=== PATIENT | male | born 1950 | race African-American/Black ===

== ENCOUNTER 2019-05-19 12:00 | Emergency (ER) | payer MEDICARE, MEDICAID ==
[~2019-05-19] VITALS: Ht 198.1 cm; Wt 108.9 kg
--- NOTE | 2019-05-19 12:10 | NUR ---
ED Nurse Note: PT. BROUGHT IN BY RA White FROM [facility]. PT. FELT DIZZY AND ALMOST HAD A SYNCOPAL EPISODE. DENIES ANY TRAUMA. PT. DENIES ANY PAIN. PER EMS, PT HAD ABD PAIN BUT PT. DENIES HAVING PAIN AT THIS TIME. PT. IS AAOX4. AMBULATORY
--- NOTE | 2019-05-19 12:15 | NUR ---
ED Nurse Note: attempted to call gustavo @ , did not answer. left voicemail
[2019-05-19 12:34] LABS: HEMATOCRIT 45.4 % (42.0-52.0); MEAN CORPUSCULAR VOLUME 85 FL (80-99); PLATELET COUNT 197 K/UL (150-450); RED BLOOD COUNT 5.33 M/UL (4.70-6.10); RED CELL DISTRIBUTION WIDTH 12.1 % (11.6-14.8)
[2019-05-19 12:48] LABS: ANION GAP 9 mmol/L (5-15); BLOOD UREA NITROGEN 12 mg/dL (7-18); CALCIUM 8.9 MG/DL (8.5-10.1); CARBON DIOXIDE 24 MMOL/L (21-32); CHLORIDE 104 MMOL/L (98-107); CREATININE 1.6 MG/DL (0.55-1.30); POTASSIUM 3.7 MMOL/L (3.5-5.1); SODIUM 137 MMOL/L (136-145)
[2019-05-19 12:59] LABS: ALANINE AMINOTRANSFERASE 20 U/L (12-78); ALBUMIN 3.7 G/DL (3.4-5.0); ALKALINE PHOSPHATASE 101 U/L (46-116); ASPARTATE AMINO TRANSFERASE 17 U/L (15-37); BILIRUBIN,TOTAL 0.4 MG/DL (0.2-1.0)
[2019-05-19 13:06] VITALS: BP 131/78
--- NOTE | 2019-05-19 13:15 | NUR ---
ED Nurse Note: Patient resting in bed, states he feels much better after the infusion of 1L NS. VSS, gave patient a sandwich and juice per Dr. Boyce. No complaints of dizziness or lightheadedness.
[2019-05-19 13:55] VITALS: BP 128/82
--- NOTE | 2019-05-19 13:55 | NUR ---
ER DISCHARGE NOTE: Patient cleared for DC per Dr. Boyce, pt AxO x 4, VSS. Patient verbalized understanding of DC instructions. ID band removed. Patient able to ambulate with steady gait, took all belongings.
--- NOTE | 2019-05-19 14:01 | Emergency Room Report ---
History of Present Illness General Chief Complaint: Syncope Source: Patient, EMS Present Illness HPI 68-year-old male presents ED for evaluation. Brought in by EMS for syncopal episode. States that while he was standing he felt dizzy and nearly passed out. States he was caught by his friends and assisted to the ground. States that he feels somewhat weak but feels better upon arrival. States that he did not eat this morning and believes that is why he nearly passed out. Denies any chest pain or shortness of breath. Denies any headache blurry vision. No other aggravating relieving factors. Denies any other associated symptoms Allergies: Coded Allergies: No Known Allergies (Unverified , 05/19/19) Patient History Past Medical History: DM Past Surgical History: none Pertinent Family History: none Social History: Denies: smoking, alcohol use, drug use Immunizations: UTD Reviewed Nursing Documentation: PMH: Agreed; PSxH: Agreed Nursing Documentation-PMH Past Medical History: No History, Except For Hx Diabetes: Yes Review of Systems All Other Systems: negative except mentioned in HPI Physical Exam Vital Signs Date Time Temp Pulse Resp B/P (MAP) Pulse Ox O2 Delivery O2 Flow Rate FiO2 05/19/19 11:53 97.3 94 17 105/69 (81) 98 Room Air Sp02 EP Interpretation: reviewed, normal General Appearance: no apparent distress, alert, GCS 15, non-toxic Head: normocephalic, atraumatic Eyes: bilateral eye normal inspection, bilateral eye PERRL ENT: hearing grossly normal, normal pharynx, no angioedema, normal voice Neck: full range of motion, supple/symm/no masses Respiratory: chest non-tender, lungs clear, normal breath sounds, speaking full sentences Cardiovascular #1: regular rate, rhythm, no edema Cardiovascular #2: 2+ carotid (R), 2+ carotid (L), 2+ radial (R), 2+ radial (L) , 2+ dorsalis pedis (R), 2+ dorsalis pedis (L) Gastrointestinal: normal bowel sounds, non tender, soft, non-distended, no guarding, no rebound Rectal: deferred Genitourinary: normal inspection, no CVA tenderness Musculoskeletal: back normal, normal range of motion, gait/station normal, non- tender Neurologic: alert, motor strength/tone normal, oriented x3, sensory intact, responsive, speech normal Psychiatric: judgement/insight normal, memory normal, mood/affect normal, no suicidal/homicidal ideation Reflexes: 3+ bicep (R), 3+ bicep (L), 3+ tricep (R), 3+ tricep (L), 3+ knee (R) , 3+ knee (L) Lymphatic: no adenopathy Medical Decision Making Diagnostic Impression: Primary Impression: Syncope Qualified Codes: R55 - Syncope and collapse ER Course Hospital Course 68-year-old male presents ED s/p syncopal episode. no complaints now Differential diagnoses include: arrythmia, dehydration, intracranial bleed, seizure Clinical course Patient placed on stretcher. on cardiac care nurse. After initial history and physical I ordered labs, EKG, chest Xray, IVFs labs reviewed- no leukocytosis, Hb/Hct stable, electrolytes ok, troponins negative, BNP wnl Chest x-ray- no acute process EKG - NSR no acute ischemic changes interpreted by me Patient given food, IV fluids. States he feels better. Ambulating in ED without difficulty. I discussed findings with patient. Negative work-up. Vitals stable. I believe patient to be safely discharged home with close outpatient follow-up. Patient agrees. I will provide referrals I. I feel this is a highly complex case requiring extensive working including EKG/Rhythm strip, Xray/CT/US, Blood/urine lab work, repeat exams while in ED, and administration of strong opiates/narcotics for pain control, admission to hospital or close patient follow up. Diagnosis - syncope Stable and discharged to home. Followup with PMD. Return to ED if symptoms recur or worsen Labs Test 05/19/19 12:21 White Blood Count 5.0 K/UL (4.8-10.8) Red Blood Count 5.33 M/UL (4.70-6.10) Hemoglobin 15.0 G/DL (14.2-18.0) Hematocrit 45.4 % (42.0-52.0) Mean Corpuscular Volume 85 FL (80-99) Mean Corpuscular Hemoglobin 28.2 PG (27.0-31.0) Mean Corpuscular Hemoglobin Concent 33.1 G/DL (32.0-36.0) Red Cell Distribution Width 12.1 % (11.6-14.8) Platelet Count 197 K/UL (150-450) Mean Platelet Volume 7.1 FL (6.5-10.1) Neutrophils (%) (Auto) % (45.0-75.0) Lymphocytes (%) (Auto) % (20.0-45.0) Monocytes (%) (Auto) % (1.0-10.0) Eosinophils (%) (Auto) % (0.0-3.0) Basophils (%) (Auto) % (0.0-2.0) Differential Total Cells Counted 100 Neutrophils % (Manual) 42 % (45-75) Lymphocytes % (Manual) 52 % (20-45) Monocytes % (Manual) 6 % (1-10) Eosinophils % (Manual) 0 % (0-3) Basophils % (Manual) 0 % (0-2) Band Neutrophils 0 % (0-8) Platelet Estimate Adequate Platelet Morphology Normal Red Blood Cell Morphology Normal Sodium Level 137 MMOL/L (136-145) Potassium Level 3.7 MMOL/L (3.5-5.1) Chloride Level 104 MMOL/L (98-107) Carbon Dioxide Level 24 MMOL/L (21-32) Anion Gap 9 mmol/L (5-15) Blood Urea Nitrogen 12 mg/dL (7-18) Creatinine 1.6 MG/DL (0.55-1.30) Estimat Glomerular Filtration Rate 52.2 mL/min (>60) Glucose Level 167 MG/DL (74-106) Calcium Level 8.9 MG/DL (8.5-10.1) Total Bilirubin 0.4 MG/DL (0.2-1.0) Aspartate Amino Transf (AST/SGOT) 17 U/L (15-37) Alanine Aminotransferase (ALT/SGPT) 20 U/L (12-78) Alkaline Phosphatase 101 U/L (46-116) Troponin I 0.000 ng/mL (0.000-0.056) Pro-B-Type Natriuretic Peptide 77 pg/mL (0-125) Total Protein 7.5 G/DL (6.4-8.2) Albumin 3.7 G/DL (3.4-5.0) Globulin 3.8 g/dL Albumin/Globulin Ratio 1.0 (1.0-2.7) EKG Diagnostic Results Rate: normal Rhythm: NSR ST Segments: no acute changes ASA given to the pt in ED: No Rhythm Strip Diag. Results EP Interpretation: yes Rhythm: NSR, no PVC's, no ectopy Chest X-Ray Diagnostic Results Chest X-Ray Diagnostic Results : Chest X-Ray Ordered: Yes # of Views/Limited/Complete: 1 View Indication: Other EP Interpretation: Yes Interpretation: no consolidation, no effusion, no pneumothorax, no acute cardiopulmonary disease Impression: No acute disease Electronically Signed by: Electronically signed by Andrew Del Angel MD Last Vital Signs Date Time Temp Pulse Resp B/P (MAP) Pulse Ox O2 Delivery O2 Flow Rate FiO2 05/19/19 13:06 97.3 75 13 131/78 98 Room Air Status: improved Disposition: HOME, SELF-CARE Condition: Stable Referrals: Rosio Strickland [facility] Patient Instructions: Syncope Andrew Del Angel MD May 19, 2019 14:01
--- NOTE | 2019-05-19 14:32 | Diagnostic Imaging Report ---
Indication: Wrist pain, shortness of breath Technique: XRAY Chest 1v Comparison: None Findings: Emphysematous disease with bullous changes in the apices, right greater than left. Some linear scarring or atelectasis is noted in the apex.. No focal airspace consolidation. No radiographically appreciable pleural effusion or pneumothorax. Heart size and mediastinal contours are within upper limits for normal size for AP technique. There are degenerative changes in the spine. No acute osseous abnormality. Impression: Emphysematous disease with bullous changes in the apices, right greater than left. Linear probable scarring in the right apex. Comparison with prior exams recommended to assess for stability. Focal airspace consolidation. No radiographically appreciable pleural effusion or pneumothorax.
== END 2019-05-19 13:55 | disposition home or self-care (01) ==
LOC: EDBD 12:00 → EMR 13:18
DX: R55 Syncope and collapse (principal); E11.9 Type 2 diabetes mellitus without complications
CPT/HCPCS: 36415; 71045; 80053; 82962; 83880; 84484; 85007; 85025; 93005; 96360; 99284